=== PATIENT | female | born 1960 | race Caucasian/White ===

== ENCOUNTER 2017-07-27 16:05 | Outpatient (CLI) | payer OTHER ==
--- NOTE | 2017-07-30 16:04 | Mammography Report ---
DIGITAL SCREENING MAMMOGRAM: 07/27/2017 CLINICAL INDICATION: A 57-year-old, for screening. COMPARISON: 08/2015, 04/2014, 03/2013, 12/2011, 02/2010. TECHNIQUE: Routine CC and MLO projections were obtained of the breasts. FINDINGS: Scattered fibroglandular tissue is present within the breasts. There are no dominant masses, suspicious microcalcifications, or secondary signs of malignancy. In comparison to the previous studies, there are no significant changes. ASSESSMENT: NO MAMMOGRAPHIC EVIDENCE OF MALIGNANCY. NO SIGNIFICANT INTERVAL CHANGES. RECOMMENDATION: Screening mammography is recommended annually. BIRADS category 1 - negative. STANDARD QUALIFYING STATEMENTS: 1. This examination was reviewed with the aid of Computed-Aided Detection (CAD). 2. A negative or benign imaging report should not delay biopsy if clinically suspicious findings are present. Consider surgical consultation if warranted. More than 5% of cancers are not identified by imaging. 3. Dense breasts may obscure an underlying neoplasm. TD: 07/30/2017 16:03
== END 2017-07-27 16:06 | disposition home or self-care (01) ==
LOC: DI.N 16:05
PROVIDERS: ATTEND Physician Assistant Medical
DX: Z12.31 Encounter for screening mammogram for malignant neoplasm of breast (principal)
CPT/HCPCS: 77067

== ENCOUNTER 2017-10-23 11:13 | Outpatient (CLI) | payer OTHER ==
[2017-10-23 19:06] LABS: BILIRUBIN,URINE NEGATIVE (NEGATIVE); GLUCOSE, URINE (UA) NEGATIVE (NEGATIVE); KETONES,URINE (UA) NEGATIVE (NEGATIVE); LEUKOCYTE ESTERASE, URINE NEGATIVE (NEGATIVE); NITRITE,URINE NEGATIVE (NEGATIVE); OCCULT BLOOD,URINE MODERATE (NEGATIVE); PROTEIN,URINE NEGATIVE (NEGATIVE); UROBILINOGEN,URINE 0.2 (NORMAL) E.U./dL (NORMAL)
[2017-10-23 19:08] LABS: BASOPHILS # (AUTO) 0.1 10^3/uL (0.0-0.1); BASOPHILS % (AUTO) 0.7 %; EOSINOPHILS # (AUTO) 0.1 10^3/uL (0.0-0.7); EOSINOPHILS % (AUTO) 1.7 %; HGB - HEMOGLOBIN 14.2 g/dL (12.0-16.0); LYMPHOCYTES # (AUTO) 2.4 10^3/uL (1.5-3.5); LYMPHOCYTES % (AUTO) 31.4 %; MEAN CORPUSCULAR HEMOGLOBIN 31.3 pg (27.0-31.0); MEAN CORPUSCULAR VOLUME 97.8 fL (81.0-99.0); MEAN PLATELET VOLUME 7.5 fL (7.9-10.8); MONOCYTES # (AUTO) 0.6 10^3/uL (0.0-1.0); MONOCYTES % (AUTO) 7.6 %; NEUTROPHILS # (AUTO) 4.4 10^3/uL (1.5-6.6); NEUTROPHILS % (AUTO) 58.6 %; PLT - PLATELET COUNT 306 10^3/uL (130-450); RED BLOOD COUNT 4.54 10^6/uL (4.20-5.40); RED CELL DISTRIBUTION WIDTH 14.7 % (12.0-15.0); WHITE BLOOD COUNT 7.6 x10^3/uL (4.8-10.8)
[2017-10-23 19:27] LABS: CLARITY,URINE CLEAR (CLEAR)
[2017-10-23 19:28] LABS: BACTERIA,URINE Rare /HPF (None Seen); RBC,URINE 0-5 /HPF (0-5); SQUAMOUS EPITHELIAL CELL,UR FEW Squamous (<= Few)
[2017-10-23 19:46] LABS: ALKALINE PHOSPHATASE 82 IU/L (42-121); ALT ALANINE AMINOTRANSFERASE 16 IU/L (10-60); AST ASPARTATE AMINOTRANSFERASE 15 IU/L (10-42); BILIRUBIN,TOTAL 1.5 mg/dL (0.2-1.0); BUN - BLOOD UREA NITROGEN 14 mg/dL (6-20); CARBON DIOXIDE - CO2 28 mmol/L (21-32); CHLORIDE 103 mmol/L (101-111); CHOL/HDL RATIO 2.9 (<4.4); CHOLESTEROL 147 mg/dL; CREATININE 0.6 mg/dL (0.4-1.0); GFR - MDRD 102 (>89); GLUCOSE 79 mg/dL (70-100); HDL CHOLESTEROL 51 mg/dL; LDL CHOLESTEROL,CALCULATED 76 mg/dL; LDL/HDL RATIO 1.5 (<4.4); SODIUM 139 mmol/L (135-145); TOTAL PROTEIN 7.9 g/dL (6.7-8.2); VLDL CHOLESTEROL 20 mg/dL
== END 2017-10-23 11:14 ==
LOC: LAB.WCP 11:13
PROVIDERS: ATTEND Physician Assistant Medical
DX: E78.5 Hyperlipidemia, unspecified (principal); L40.50 Arthropathic psoriasis, unspecified; R31.9 Hematuria, unspecified
CPT/HCPCS: 36415; 80053; 80061; 81001; 83721; 85025; 87086

== ENCOUNTER 2018-01-09 08:00 | Outpatient (CLI) | payer OTHER ==
[2018-01-09 19:15] LABS: ALBUMIN 3.9 g/dL (3.2-5.5); ALBUMIN/GLOBULIN RATIO 1.1 (1.0-2.2); BILIRUBIN,TOTAL 0.5 mg/dL (0.2-1.0); CALCIUM 8.6 mg/dL (8.5-10.3); CREATININE 0.7 mg/dL (0.4-1.0); TOTAL PROTEIN 7.6 g/dL (6.7-8.2)
== END 2018-01-09 08:01 | disposition home or self-care (01) ==
LOC: LAB.R 08:00
PROVIDERS: ATTEND Physician Assistant Medical
DX: R74.8 Abnormal levels of other serum enzymes (principal)
CPT/HCPCS: 80053

== ENCOUNTER 2018-06-29 10:26 | Outpatient (CLI) | payer OTHER ==
[2018-06-29] MEDS ORDERED: IOVERSOL 320 100 ML VIAL IVP ONE ×3 (10:34→11:20)
--- NOTE | 2018-06-30 21:17 | CT Report ---
Reason: ASYMPTOMATIC MICROSCOPIC HEMATURIA Procedure Date: 06/29/2018 Accession Number: [id number] / [id number] Procedure: CT - IVP CPT Code: FULL RESULT: EXAM: CT ABDOMEN AND PELVIS WITHOUT AND WITH CONTRAST (CT IVP). EXAM DATE: 06/29/2018 11:26 AM. CLINICAL HISTORY: Asymptomatically microscopic hematuria. COMPARISONS: None. TECHNIQUE: Pre and postcontrast images of the abdomen and pelvis are acquired. Post contrast images were acquired using a split bolus technique. IV Contrast: 100 mL Optiray 320. Reconstructions: Coronal and sagittal. In accordance with CT protocol optimization, one or more of the following dose reduction techniques were utilized for this exam: automated exposure control, adjustment of mA and/or KV based on patient size, or use of iterative reconstructive technique. FINDINGS: Right Kidney/Ureter: There is no kidney stone or hydronephrosis. No definite suspicious renal mass. A few small low-density foci are noted within the right kidney, probably representing renal cysts. No suspicious collecting system filling defect is noted at this time. Left Kidney/Ureter: No stone or hydronephrosis. There are several small low-density foci within the kidney, suggestive of a cyst. Small exophytic low-density arises from the anterior portion of the right lower kidney as well. No definite collecting system filling defect is noted. Other Solid Organs: There is a large gallstone. No evidence of cholecystitis. Abdominal parenchymal organs are otherwise without significant abnormality. Peritoneal Cavity/Bowel: No bowel obstruction. Average amount of retained difficult material. The appendix could not be identified with certainty. However, there are no secondary signs of appendicitis demonstrated at this time. No free fluid or pathologic lymph adenopathy. Pelvic Organs: There is nonspecific asymmetric fullness in the region of the right labia (image 83 series 4). Physiologic appearance of the ovaries. No suspicious bladder filling defect. Vasculature: Normal caliber aorta. Bones: There is a mild left convex scoliosis of the lumbar spine. Mild multilevel lumbar degenerative change. No suspicious bone lesion. Lower chest: No significant consolidation or effusion. IMPRESSION: 1. No suspicious renal mass or urinary collecting system filling defect. No kidney stone or hydronephrosis. 2. Nonspecific asymmetric fullness in the region of the right labia compared to the left side. This may be artifact related to oblique positioning. Correlation with direct visualization and physical examination would be helpful to exclude a symptomatic Bartholin cyst or other mass. RADIA
== END 2018-06-29 10:27 | disposition home or self-care (01) ==
LOC: DI 10:26
PROVIDERS: ATTEND Urology
DX: R31.21 Asymptomatic microscopic hematuria (principal)
CPT/HCPCS: 74178; Q9967

== ENCOUNTER 2018-11-13 07:02 | Outpatient (CLI) | payer OTHER ==
[2018-11-13 12:25] LABS: BASOPHILS # (AUTO) 0.1 10^3/uL (0.0-0.1); BASOPHILS % (AUTO) 0.9 %; EOSINOPHILS # (AUTO) 0.1 10^3/uL (0.0-0.7); EOSINOPHILS % (AUTO) 1.5 %; LYMPHOCYTES # (AUTO) 2.4 10^3/uL (1.5-3.5); LYMPHOCYTES % (AUTO) 30.3 %; MEAN CORPUSCULAR HEMOGLOBIN 29.8 pg (27.0-31.0); MEAN CORPUSCULAR HGB CONC 31.1 g/dL (32.0-36.0); MEAN CORPUSCULAR VOLUME 95.7 fL (81.0-99.0); MEAN PLATELET VOLUME 9.2 fL (7.9-10.8); MONOCYTES # (AUTO) 0.7 10^3/uL (0.0-1.0); MONOCYTES % (AUTO) 8.9 %; NEUTROPHILS # (AUTO) 4.7 10^3/uL (1.5-6.6); PLT - PLATELET COUNT 348 10^3/uL (130-450); RED CELL DISTRIBUTION WIDTH 13.7 % (12.0-15.0)
[2018-11-13 12:54] LABS: ALBUMIN 3.8 g/dL (3.2-5.5); ALBUMIN/GLOBULIN RATIO 0.9 (1.0-2.2); ALKALINE PHOSPHATASE 107 IU/L (42-121); ALT ALANINE AMINOTRANSFERASE 38 IU/L (10-60); AST ASPARTATE AMINOTRANSFERASE 18 IU/L (10-42); BILIRUBIN,TOTAL 1.2 mg/dL (0.2-1.0); BUN - BLOOD UREA NITROGEN 16 mg/dL (6-20); CALCIUM 8.9 mg/dL (8.5-10.3); CARBON DIOXIDE - CO2 23 mmol/L (21-32); CHLORIDE 106 mmol/L (101-111); CREATININE 0.6 mg/dL (0.4-1.0); GFR - MDRD 102 (>89); GLUCOSE 94 mg/dL (70-100); SODIUM 139 mmol/L (135-145); TOTAL PROTEIN 7.9 g/dL (6.7-8.2)
[2018-11-13 12:58] LABS: CHOL/HDL RATIO 3.1 (<4.4); CHOLESTEROL 155 mg/dL; HDL CHOLESTEROL 50 mg/dL; LDL CHOLESTEROL,CALCULATED 78 mg/dL; LDL/HDL RATIO 1.6 (<4.4); VLDL CHOLESTEROL 27 mg/dL
[2018-11-13 13:11] LABS: CRP - C-REACTIVE PROTEIN < 1.0 mg/dL (0-1.0)
[2018-11-13 18:10] LABS: RHEUMATOID FACTOR NEGATIVE (Negative)
[2018-11-15 10:32] LABS: DNA (DS) ANTIBODY 1 IU/mL
[2018-11-15 16:51] LABS: COMPLEMENT COMPONENT C3C 158 mg/dL (83-193); COMPLEMENT COMPONENT C4C 40 mg/dL (15-57)
[2018-11-15 20:02] LABS: CYCLIC CITRULL PEPTIDE CCP IGG <16 UNITS
== END 2018-11-13 07:03 | disposition home or self-care (01) ==
LOC: LAB.WCP 07:02
PROVIDERS: ATTEND Physician Assistant Medical
DX: Z00.00 Encounter for general adult medical examination without abnormal findings (principal); L40.50 Arthropathic psoriasis, unspecified; M25.50 Pain in unspecified joint; R76.8 Other specified abnormal immunological findings in serum; E78.5 Hyperlipidemia, unspecified
CPT/HCPCS: 36415; 80053; 80061; 83721; 84443; 85025; 85651; 86140; 86160; 86200; 86225; 86430

== ENCOUNTER 2018-12-05 16:03 | Outpatient (CLI) | payer OTHER ==
--- NOTE | 2018-12-09 10:13 | Mammography Report ---
Reason: SCREENING MAMMO Procedure Date: 12/05/2018 Accession Number: [id number] / [id number] Procedure: [facility] - Screening Mammo Dig Bilat CPT Code: FULL RESULT: EXAM: Screening Mammo Dig Bilat DATE: 12/05/2018 4:26 PM CLINICAL HISTORY: Screening encounter. No reported risk factors. TECHNIQUE: (B) - Bilateral CC and MLO views were obtained. COMPARISON: 07/27/2017 through 04/18/2013. PARENCHYMAL PATTERN: (A) - The breast(s) demonstrate(s) scattered fibroglandular densities. FINDINGS: The left CC projection imaging needs to be repeated for technical reasons. There are no suspicious masses, calcifications, or areas of distortion. IMPRESSION: Incomplete examination. BI-RADS category 0. RECOMMENDATION: (REPEAT) - left CC projection, including left laterally exaggerated CC technique. BI-RADS CATEGORY: (0) - Incomplete Examination - need additional evaluation. STANDARD QUALIFYING STATEMENTS: 1. This examination was not reviewed with the aid of Computer-Aided Detection (CAD). 2. A negative or benign imaging report should not preclude biopsy if clinically suspicious findings are present. 3. Dense breasts may obscure an underlying neoplasm. 4. This examination was reviewed without the aid of 3D breast imaging (tomosynthesis).
== END 2018-12-05 16:04 | disposition home or self-care (01) ==
LOC: DI.N 16:03
DX: Z12.31 Encounter for screening mammogram for malignant neoplasm of breast (principal)
CPT/HCPCS: 77067

== ENCOUNTER 2018-12-27 12:09 | Outpatient (CLI) | payer OTHER ==
--- NOTE | 2018-12-30 08:18 | Mammography Report ---
Reason: ROUTINE MAMMO - TECH REPEAT Procedure Date: 12/27/2018 Accession Number: [id number] / [id number] Procedure: [facility] - Screening Mammo Dig Bilat CPT Code: FULL RESULT: EXAM: Screening Mammo Dig Bilat DATE: 12/27/2018 1:05 PM CLINICAL HISTORY: Screening encounter. No reported risk factors. TECHNIQUE: (B) - Bilateral CC and MLO views were obtained. Images obtained 12/27/2018 are interpreted in conjunction with images obtained 12/05/2018. COMPARISON: 07/27/2017 through 04/18/2013. PARENCHYMAL PATTERN: (A) - The breast(s) demonstrate(s) scattered fibroglandular densities. FINDINGS: There are no suspicious masses, calcifications, or areas of distortion. IMPRESSION: Negative examination. BI-RADS category 1. RECOMMENDATION: (ANNUAL) - Recommend routine annual screening mammography. BI-RADS CATEGORY: (1) - Negative. STANDARD QUALIFYING STATEMENTS: 1. This examination was not reviewed with the aid of Computer-Aided Detection (CAD). 2. A negative or benign imaging report should not preclude biopsy if clinically suspicious findings are present. 3. Dense breasts may obscure an underlying neoplasm. 4. This examination was reviewed without the aid of 3D breast imaging (tomosynthesis).
== END 2018-12-27 12:10 | disposition home or self-care (01) ==
LOC: DI 12:09
DX: Z12.31 Encounter for screening mammogram for malignant neoplasm of breast (principal)
CPT/HCPCS: 77067

== ENCOUNTER 2019-01-06 15:19 | Outpatient (CLI) | payer OTHER ==
[2019-01-06 18:42] LABS: BASOPHILS # (AUTO) 0.1 10^3/uL (0.0-0.1); BASOPHILS % (AUTO) 0.9 %; EOSINOPHILS # (AUTO) 0.1 10^3/uL (0.0-0.7); EOSINOPHILS % (AUTO) 0.6 %; HGB - HEMOGLOBIN 13.9 g/dL (12.0-16.0); LYMPHOCYTES # (AUTO) 2.6 10^3/uL (1.5-3.5); LYMPHOCYTES % (AUTO) 26.5 %; MEAN CORPUSCULAR HEMOGLOBIN 30.7 pg (27.0-31.0); MEAN CORPUSCULAR HGB CONC 31.7 g/dL (32.0-36.0); MEAN CORPUSCULAR VOLUME 96.7 fL (81.0-99.0); MEAN PLATELET VOLUME 9.5 fL (7.9-10.8); MONOCYTES # (AUTO) 0.7 10^3/uL (0.0-1.0); NEUTROPHILS # (AUTO) 6.2 10^3/uL (1.5-6.6); NEUTROPHILS % (AUTO) 64.8 %; PLT - PLATELET COUNT 335 10^3/uL (130-450); RED BLOOD COUNT 4.53 10^6/uL (4.20-5.40); RED CELL DISTRIBUTION WIDTH 14.3 % (12.0-15.0); WHITE BLOOD COUNT 9.6 x10^3/uL (4.8-10.8)
[2019-01-06 19:01] LABS: BILIRUBIN,TOTAL 0.5 mg/dL (0.2-1.0); CALCIUM 9.1 mg/dL (8.5-10.3); CREATININE 0.6 mg/dL (0.4-1.0); TOTAL PROTEIN 8.1 g/dL (6.7-8.2)
== END 2019-01-06 23:59 | disposition home or self-care (01) ==
LOC: LAB.WCP 15:19
PROVIDERS: ATTEND Internal Medicine Rheumatology
DX: L40.50 Arthropathic psoriasis, unspecified (principal); R76.8 Other specified abnormal immunological findings in serum
CPT/HCPCS: 36415; 80053; 85025; 85651

== ENCOUNTER 2020-03-08 08:00 | Outpatient (CLI) | payer OTHER ==
[2020-03-08 18:02] LABS: BASOPHILS # (AUTO) 0.1 10^3/uL (0.0-0.1); BASOPHILS % (AUTO) 0.9 %; EOSINOPHILS # (AUTO) 0.1 10^3/uL (0.0-0.7); HGB - HEMOGLOBIN 13.1 g/dL (12.0-16.0); LYMPHOCYTES # (AUTO) 2.8 10^3/uL (1.5-3.5); LYMPHOCYTES % (AUTO) 32.1 %; MEAN CORPUSCULAR HEMOGLOBIN 33.9 pg (27.0-31.0); MEAN CORPUSCULAR HGB CONC 34.6 g/dL (32.0-36.0); MEAN CORPUSCULAR VOLUME 98.2 fL (81.0-99.0); MEAN PLATELET VOLUME 9.3 fL (7.9-10.8); MONOCYTES # (AUTO) 0.7 10^3/uL (0.0-1.0); MONOCYTES % (AUTO) 8.6 %; NEUTROPHILS # (AUTO) 4.9 10^3/uL (1.5-6.6); NEUTROPHILS % (AUTO) 57.1 %; PLT - PLATELET COUNT 350 10^3/uL (130-450); RED BLOOD COUNT 3.86 10^6/uL (4.20-5.40); RED CELL DISTRIBUTION WIDTH 14.7 % (12.0-15.0); WHITE BLOOD COUNT 8.6 x10^3/uL (4.8-10.8)
[2020-03-08 18:14] LABS: ALBUMIN 3.8 g/dL (3.2-5.5); BILIRUBIN,TOTAL 0.8 mg/dL (0.2-1.0); CALCIUM 9.1 mg/dL (8.5-10.3); CREATININE 0.8 mg/dL (0.4-1.0); TOTAL PROTEIN 7.5 g/dL (6.7-8.2)
== END 2020-03-08 23:59 | disposition home or self-care (01) ==
LOC: LAB.R 08:00
PROVIDERS: ATTEND Physician Assistant Medical
DX: L40.50 Arthropathic psoriasis, unspecified (principal)
CPT/HCPCS: 80053; 85025; 85651

== ENCOUNTER 2020-06-16 08:00 | Outpatient (CLI) | payer MEDICAID, OTHER ==
[2020-06-16 12:50] LABS: BASOPHILS # (AUTO) 0.1 10^3/uL (0.0-0.1); BASOPHILS % (AUTO) 0.6 %; EOSINOPHILS # (AUTO) 0.1 10^3/uL (0.0-0.7); EOSINOPHILS % (AUTO) 0.9 %; HGB - HEMOGLOBIN 13.6 g/dL (12.0-16.0); LYMPHOCYTES # (AUTO) 2.5 10^3/uL (1.5-3.5); LYMPHOCYTES % (AUTO) 28.5 %; MEAN CORPUSCULAR HGB CONC 34.4 g/dL (32.0-36.0); MEAN CORPUSCULAR VOLUME 98.8 fL (81.0-99.0); MEAN PLATELET VOLUME 9.2 fL (7.9-10.8); MONOCYTES # (AUTO) 0.5 10^3/uL (0.0-1.0); MONOCYTES % (AUTO) 5.5 %; NEUTROPHILS # (AUTO) 5.6 10^3/uL (1.5-6.6); NEUTROPHILS % (AUTO) 64.2 %; PLT - PLATELET COUNT 357 10^3/uL (130-450); RED CELL DISTRIBUTION WIDTH 12.5 % (12.0-15.0); WHITE BLOOD COUNT 8.8 x10^3/uL (4.8-10.8)
[2020-06-16 13:20] LABS: ALBUMIN 3.9 g/dL (3.2-5.5); ALBUMIN/GLOBULIN RATIO 0.9 (1.0-2.2); ALKALINE PHOSPHATASE 62 IU/L (42-121); ALT ALANINE AMINOTRANSFERASE 22 IU/L (10-60); AST ASPARTATE AMINOTRANSFERASE 18 IU/L (10-42); BILIRUBIN,TOTAL 0.7 mg/dL (0.2-1.0); BUN - BLOOD UREA NITROGEN 22 mg/dL (6-20); CALCIUM 10.1 mg/dL (8.5-10.3); CARBON DIOXIDE - CO2 29 mmol/L (21-32); CHLORIDE 98 mmol/L (101-111); CHOL/HDL RATIO 2.9 (<4.4); CHOLESTEROL 152 mg/dL; CREATININE 0.9 mg/dL (0.4-1.0); GLUCOSE 90 mg/dL (70-100); HDL CHOLESTEROL 52 mg/dL; LDL CHOLESTEROL,CALCULATED 72 mg/dL; LDL/HDL RATIO 1.4 (<4.4); TOTAL PROTEIN 8.2 g/dL (6.7-8.2); VLDL CHOLESTEROL 28 mg/dL
== END 2020-06-16 23:59 | disposition home or self-care (01) ==
LOC: LAB.WCP 08:00
PROVIDERS: ATTEND Physician Assistant Medical
DX: Z00.00 Encounter for general adult medical examination without abnormal findings (principal); E78.5 Hyperlipidemia, unspecified; L40.50 Arthropathic psoriasis, unspecified
CPT/HCPCS: 36415; 80053; 80061; 83721; 84443; 85025; 85651

== ENCOUNTER 2020-07-19 08:00 | Outpatient (CLI) | payer MEDICAID ==
[2020-07-19 18:43] LABS: CALCIUM 9.6 mg/dL (8.5-10.3)
== END 2020-07-19 23:59 | disposition home or self-care (01) ==
LOC: LAB.WCP 08:00
PROVIDERS: ATTEND Physician Assistant Medical
DX: I10 Essential (primary) hypertension (principal)
CPT/HCPCS: 36415; 80048

== ENCOUNTER 2020-10-05 09:01 | Outpatient (CLI) | payer MEDICAID ==
[2020-10-05 13:03] LABS: BASOPHILS # (AUTO) 0.1 10^3/uL (0.0-0.1); BASOPHILS % (AUTO) 1.6 %; EOSINOPHILS # (AUTO) 0.1 10^3/uL (0.0-0.7); EOSINOPHILS % (AUTO) 1.6 %; HCT - HEMATOCRIT 41.7 % (37.0-47.0); HGB - HEMOGLOBIN 14.6 g/dL (12.0-16.0); LYMPHOCYTES # (AUTO) 1.7 10^3/uL (1.5-3.5); MEAN CORPUSCULAR HEMOGLOBIN 33.5 pg (27.0-31.0); MEAN CORPUSCULAR VOLUME 95.6 fL (81.0-99.0); MEAN PLATELET VOLUME 9.6 fL (7.9-10.8); MONOCYTES # (AUTO) 0.5 10^3/uL (0.0-1.0); NEUTROPHILS # (AUTO) 4.6 10^3/uL (1.5-6.6); NEUTROPHILS % (AUTO) 65.5 %; PLT - PLATELET COUNT 345 10^3/uL (130-450); RED BLOOD COUNT 4.36 10^6/uL (4.20-5.40); RED CELL DISTRIBUTION WIDTH 12.9 % (12.0-15.0)
[2020-10-05 13:33] LABS: ALBUMIN 4.2 g/dL (3.2-5.5); ALKALINE PHOSPHATASE 73 IU/L (42-121); ALT ALANINE AMINOTRANSFERASE 20 IU/L (10-60); AST ASPARTATE AMINOTRANSFERASE 19 IU/L (10-42); BILIRUBIN,TOTAL 1.1 mg/dL (0.2-1.0); BUN - BLOOD UREA NITROGEN 32 mg/dL (6-20); CALCIUM 9.6 mg/dL (8.5-10.3); CARBON DIOXIDE - CO2 26 mmol/L (21-32); CHLORIDE 103 mmol/L (101-111); CHOL/HDL RATIO 3.6 (<4.4); CHOLESTEROL 175 mg/dL; CREATININE 1.2 mg/dL (0.4-1.0); GFR - MDRD 46 (>89); GLUCOSE 92 mg/dL (70-100); HDL CHOLESTEROL 48 mg/dL; LDL CHOLESTEROL,CALCULATED 108 mg/dL; LDL/HDL RATIO 2.3 (<4.4); POTASSIUM 2.9 mmol/L (3.5-5.0); SODIUM 140 mmol/L (135-145); THYROID STIMULATING HORMONE 0.35 uIU/mL (0.34-5.60); TOTAL PROTEIN 8.3 g/dL (6.7-8.2); TRIGLYCERIDES 94 mg/dL; VLDL CHOLESTEROL 19 mg/dL
== END 2020-10-05 23:59 | disposition home or self-care (01) ==
LOC: LAB.WCP 09:01
PROVIDERS: ATTEND Physician Assistant Medical
DX: E55.9 Vitamin D deficiency, unspecified (principal); R74.8 Abnormal levels of other serum enzymes; E78.5 Hyperlipidemia, unspecified; I10 Essential (primary) hypertension
CPT/HCPCS: 36415; 80053; 80061; 83721; 84443; 85025

== ENCOUNTER 2020-10-26 08:00 | Outpatient (CLI) | payer MEDICAID ==
[2020-10-26 18:15] LABS: BASOPHILS # (AUTO) 0.1 10^3/uL (0.0-0.1); BASOPHILS % (AUTO) 0.8 %; EOSINOPHILS # (AUTO) 0.1 10^3/uL (0.0-0.7); EOSINOPHILS % (AUTO) 1.2 %; HCT - HEMATOCRIT 41.1 % (37.0-47.0); HGB - HEMOGLOBIN 13.8 g/dL (12.0-16.0); LYMPHOCYTES # (AUTO) 1.8 10^3/uL (1.5-3.5); MEAN CORPUSCULAR HEMOGLOBIN 33.7 pg (27.0-31.0); MEAN CORPUSCULAR HGB CONC 33.6 g/dL (32.0-36.0); MEAN CORPUSCULAR VOLUME 100.2 fL (81.0-99.0); MEAN PLATELET VOLUME 10.2 fL (7.9-10.8); MONOCYTES # (AUTO) 0.6 10^3/uL (0.0-1.0); NEUTROPHILS # (AUTO) 7.5 10^3/uL (1.5-6.6); NEUTROPHILS % (AUTO) 73.7 %; PLT - PLATELET COUNT 332 10^3/uL (130-450); RED CELL DISTRIBUTION WIDTH 14.5 % (12.0-15.0); WHITE BLOOD COUNT 10.2 x10^3/uL (4.8-10.8)
[2020-10-26 18:34] LABS: ALBUMIN 4.1 g/dL (3.2-5.5); ALBUMIN/GLOBULIN RATIO 1.1 (1.0-2.2); BILIRUBIN,TOTAL 1.3 mg/dL (0.2-1.0); CALCIUM 9.1 mg/dL (8.5-10.3); CREATININE 0.8 mg/dL (0.4-1.0); POTASSIUM 3.5 mmol/L (3.5-5.0); TOTAL PROTEIN 7.7 g/dL (6.7-8.2)
== END 2020-10-26 23:59 | disposition home or self-care (01) ==
LOC: LAB.N 08:00
PROVIDERS: ATTEND Family Medicine
DX: I10 Essential (primary) hypertension (principal)
CPT/HCPCS: 36415; 80053; 85025

== ENCOUNTER 2021-06-09 15:21 | Outpatient (CLI) | payer MEDICAID ==
--- NOTE | 2021-06-13 08:58 | Mammography Report ---
BILATERAL DIGITAL SCREENING MAMMOGRAM 3D/2D: 06/09/2021 CLINICAL: Routine screening. Comparison is made to exams dated: 12/27/2018 mammogram, 12/05/2018 mammogram, 07/27/2017 mammogram, 2015 mammogram, 05/22/2014 mammogram, and 04/18/2013 mammogram - [facility]. There are scattered fibroglandular elements in both breasts. No significant masses, calcifications, or other findings are seen in either breast. There has been no significant interval change. IMPRESSION: NEGATIVE There is no mammographic evidence of malignancy. A 1 year screening mammogram is recommended. This exam was interpreted at Station ID: [id number]. NOTE: For mammograms, a report in lay terms will be sent to the patient. Approximately 15% of breast malignancies will not be visualized mammographically. In the management of a palpable breast mass, a negative mammogram must not discourage biopsy of a clinically suspicious lesion. Electronically Signed By: García brito/tone:06/10/2021 08:11:53 ACR BI-RADS Category 1: Negative 3341F PARENCHYMAL PATTERN: (A) - The breast(s) demonstrate(s) scattered fibroglandular densities. BI-RADS CATEGORY: (1) - 1 RECOMMENDATION: (ANNUAL) - Recommend routine annual screening mammography. [id number] 1 year screening LATERALITY: (B)
== END 2021-06-09 15:22 | disposition home or self-care (01) ==
LOC: DI.N 15:21
DX: Z12.31 Encounter for screening mammogram for malignant neoplasm of breast (principal)

== ENCOUNTER 2021-09-10 09:06 | Outpatient (CLI) | payer MEDICAID ==
[2021-09-10 14:13] LABS: BASOPHILS # (AUTO) 0.1 10^3/uL (0.0-0.1); BASOPHILS % (AUTO) 0.9 %; EOSINOPHILS # (AUTO) 0.1 10^3/uL (0.0-0.7); EOSINOPHILS % (AUTO) 1.5 %; HCT - HEMATOCRIT 39.8 % (37.0-47.0); HGB - HEMOGLOBIN 14.1 g/dL (12.0-16.0); LYMPHOCYTES # (AUTO) 1.7 10^3/uL (1.5-3.5); LYMPHOCYTES % (AUTO) 25.1 %; MEAN CORPUSCULAR HEMOGLOBIN 35.3 pg (27.0-31.0); MEAN CORPUSCULAR HGB CONC 35.4 g/dL (32.0-36.0); MEAN CORPUSCULAR VOLUME 99.7 fL (81.0-99.0); MEAN PLATELET VOLUME 9.5 fL (7.9-10.8); MONOCYTES # (AUTO) 0.6 10^3/uL (0.0-1.0); MONOCYTES % (AUTO) 9.7 %; NEUTROPHILS # (AUTO) 4.2 10^3/uL (1.5-6.6); NEUTROPHILS % (AUTO) 62.6 %; PLT - PLATELET COUNT 343 10^3/uL (130-450); RED BLOOD COUNT 3.99 10^6/uL (4.20-5.40); WHITE BLOOD COUNT 6.6 x10^3/uL (4.8-10.8)
[2021-09-10 14:37] LABS: ALBUMIN 4.3 g/dL (3.2-5.5); ALBUMIN/GLOBULIN RATIO 1.1 (1.0-2.2); ALKALINE PHOSPHATASE 118 IU/L (42-121); ALT ALANINE AMINOTRANSFERASE 18 IU/L (10-60); AST ASPARTATE AMINOTRANSFERASE 18 IU/L (10-42); BUN - BLOOD UREA NITROGEN 14 mg/dL (6-20); CALCIUM 9.1 mg/dL (8.5-10.3); CARBON DIOXIDE - CO2 28 mmol/L (21-32); CHLORIDE 102 mmol/L (101-111); CHOL/HDL RATIO 2.9 (<4.4); CHOLESTEROL 149 mg/dL; CREATININE 0.7 mg/dL (0.4-1.0); GFR - MDRD 85 (>89); GLUCOSE 95 mg/dL (70-100); HDL CHOLESTEROL 52 mg/dL; LDL CHOLESTEROL,CALCULATED 85 mg/dL; LDL/HDL RATIO 1.6 (<4.4); POTASSIUM 3.7 mmol/L (3.5-5.0); SODIUM 139 mmol/L (135-145); TOTAL PROTEIN 8.3 g/dL (6.7-8.2); TRIGLYCERIDES 61 mg/dL; VLDL CHOLESTEROL 12 mg/dL
[2021-09-10 14:46] LABS: THYROID STIMULATING HORMONE 0.62 uIU/mL (0.34-5.60)
== END 2021-09-10 09:07 | disposition home or self-care (01) ==
LOC: LAB.N 09:06
PROVIDERS: ATTEND Physician Assistant Medical
DX: Z00.00 Encounter for general adult medical examination without abnormal findings (principal)
CPT/HCPCS: 36415; 80053; 80061; 83721; 84443; 85025

== ENCOUNTER 2022-11-11 09:58 | Outpatient (CLI) | payer MEDICAID ==
[2022-11-11 18:59] LABS: BASOPHILS # (AUTO) 0.1 10^3/uL (0.0-0.1); BASOPHILS % (AUTO) 0.8 %; EOSINOPHILS # (AUTO) 0.1 10^3/uL (0.0-0.7); EOSINOPHILS % (AUTO) 1.8 %; HCT - HEMATOCRIT 40.6 % (37.0-47.0); HGB - HEMOGLOBIN 14.2 g/dL (12.0-16.0); LYMPHOCYTES # (AUTO) 1.4 10^3/uL (1.5-3.5); LYMPHOCYTES % (AUTO) 18.8 %; MEAN CORPUSCULAR HEMOGLOBIN 35.1 pg (27.0-31.0); MEAN CORPUSCULAR VOLUME 100.5 fL (81.0-99.0); MEAN PLATELET VOLUME 9.4 fL (7.9-10.8); MONOCYTES # (AUTO) 0.7 10^3/uL (0.0-1.0); MONOCYTES % (AUTO) 9.2 %; NEUTROPHILS % (AUTO) 69.3 %; PLT - PLATELET COUNT 336 10^3/uL (130-450); RED BLOOD COUNT 4.04 10^6/uL (4.20-5.40); RED CELL DISTRIBUTION WIDTH 14.1 % (12.0-15.0); WHITE BLOOD COUNT 7.2 x10^3/uL (4.8-10.8)
[2022-11-11 19:18] LABS: ALBUMIN 4.2 g/dL (3.2-5.5); ALKALINE PHOSPHATASE 151 IU/L (42-121); ALT ALANINE AMINOTRANSFERASE 39 IU/L (10-60); AST ASPARTATE AMINOTRANSFERASE 22 IU/L (10-42); BUN - BLOOD UREA NITROGEN 18 mg/dL (6-20); CALCIUM 8.9 mg/dL (8.5-10.3); CARBON DIOXIDE - CO2 27 mmol/L (21-32); CHLORIDE 108 mmol/L (101-111); CHOL/HDL RATIO 3.2 (<4.4); CHOLESTEROL 176 mg/dL; CREATININE 0.7 mg/dL (0.4-1.0); GFR - MDRD 84 (>89); GLUCOSE 97 mg/dL (70-100); HDL CHOLESTEROL 55 mg/dL; LDL CHOLESTEROL,CALCULATED 103 mg/dL; LDL/HDL RATIO 1.9 (<4.4); POTASSIUM 3.5 mmol/L (3.5-5.0); SODIUM 140 mmol/L (135-145); TOTAL PROTEIN 8.4 g/dL (6.7-8.2); TRIGLYCERIDES 90 mg/dL; VLDL CHOLESTEROL 18 mg/dL
[2022-11-12 14:36] LABS: ESTIMATED AVERAGE GLUCOSE 103 mg/dL (70-100); HEMOGLOBIN A1c% 5.2 % (4.27-6.07)
== END 2022-11-11 09:59 | disposition home or self-care (01) ==
LOC: LAB.N 09:58
PROVIDERS: ATTEND Physician Assistant Medical
DX: E87.6 Hypokalemia (principal); R73.01 Impaired fasting glucose; E78.5 Hyperlipidemia, unspecified; N18.9 Chronic kidney disease, unspecified
CPT/HCPCS: 36415; 80053; 80061; 83036; 83721; 85025

== ENCOUNTER 2023-01-26 14:48 | Outpatient (CLI) | payer MEDICAID ==
--- NOTE | 2023-01-26 16:29 | Mammography Report ---
BILATERAL DIGITAL SCREENING MAMMOGRAM 3D/2D: 01/26/2023 CLINICAL: Routine screening. Comparison is made to exams dated: 06/09/2021 mammogram, 12/27/2018 mammogram, 12/05/2018 mammogram, 07/27 mammogram, and 09/01/2015 mammogram - [facility]. There are scattered areas of fibroglandular density in both breasts (category b / 25%-50% glandular t issue). No significant masses, calcifications, or other findings are seen in either breast. There has been no significant interval change. IMPRESSION: NEGATIVE There is no mammographic evidence of malignancy. A 1 year screening mammogram is recommended. Based on the Tyrer Cuzick model (a risk assessment model) the patients lifetime risk is 6.3% and her 10 year risk is 2.9%. According to the ACR, ACS, and NCCN guidelines, an annual breast MRI exam remedios g with mammogram is recommended if the patients lifetime risk is 20% or greater. This exam was interpreted at Station ID: [id number]. NOTE: For mammograms, a report in lay terms will be sent to the patient. Approximately 15% of breast malignancies will not be visualized mammographically. In the management of a palpable breast mass, a negative mammogram must not discourage biopsy of a clinically suspicious lesion. Electronically Signed By: García brito/tone:01/26/2023 16:08:44 ACR BI-RADS Category 1: Negative 3341F PARENCHYMAL PATTERN: (A) - The breast(s) demonstrate(s) scattered fibroglandular densities. BI-RADS CATEGORY: (1) - 1 Mammogram [id number] 1 year screening LATERALITY: (B)
== END 2023-01-26 14:49 | disposition home or self-care (01) ==
LOC: DI 14:48
DX: Z12.31 Encounter for screening mammogram for malignant neoplasm of breast (principal)

== ENCOUNTER 2023-09-22 09:11 | Outpatient (CLI) | payer MEDICARE, OTHER ==
[2023-09-22 19:10] LABS: ALBUMIN/GLOBULIN RATIO 0.9 (1.0-2.2); ALKALINE PHOSPHATASE 123 IU/L (42-121); ALT ALANINE AMINOTRANSFERASE 10 IU/L (10-60); AST ASPARTATE AMINOTRANSFERASE 10 IU/L (10-42); BILIRUBIN,TOTAL 0.6 mg/dL (0.2-1.0); BUN - BLOOD UREA NITROGEN 17 mg/dL (6-20); CALCIUM 9.7 mg/dL (8.5-10.3); CARBON DIOXIDE - CO2 27 mmol/L (21-32); CHLORIDE 107 mmol/L (101-111); CHOL/HDL RATIO 3.3 (<4.4); CHOLESTEROL 153 mg/dL; CREATININE 0.7 mg/dL (0.6-1.3); GFR - MDRD 84 (>89); GLUCOSE 85 mg/dL (74-104); HDL CHOLESTEROL 46 mg/dL; LDL CHOLESTEROL,CALCULATED 88 mg/dL; LDL/HDL RATIO 1.9 (<4.4); POTASSIUM 3.6 mmol/L (3.5-4.5); SODIUM 140 mmol/L (135-145); TOTAL PROTEIN 8.4 g/dL (6.4-8.9); TRIGLYCERIDES 93 mg/dL (48-352); VLDL CHOLESTEROL 19 mg/dL
[2023-09-23 08:03] LABS: ESTIMATED AVERAGE GLUCOSE 97 mg/dL (70-100)
== END 2023-09-22 09:12 | disposition home or self-care (01) ==
LOC: LAB.N 09:11
PROVIDERS: ATTEND Physician Assistant Medical
DX: E78.5 Hyperlipidemia, unspecified (principal); R73.01 Impaired fasting glucose
CPT/HCPCS: 36415; 80053; 80061; 83036; 83721

== ENCOUNTER 2024-02-16 09:44 | Outpatient (CLI) | payer MEDICARE, MEDICAID | END 2024-02-16 09:45 | disposition home or self-care (01) | LOC: LAB 09:44 | PROVIDERS: ATTEND Physician Assistant Medical | DX: Z53.9 Procedure and treatment not carried out, unspecified reason (principal) ==

== ENCOUNTER 2024-02-21 08:11 | Outpatient (CLI) | payer MEDICARE, MEDICAID ==
[2024-02-21 11:35] LABS: BASOPHILS # (AUTO) 0.1 10^3/uL (0.0-0.1); BASOPHILS % (AUTO) 1.4 %; EOSINOPHILS # (AUTO) 0.1 10^3/uL (0.0-0.7); EOSINOPHILS % (AUTO) 1.4 %; HCT - HEMATOCRIT 41.9 % (37.0-47.0); HGB - HEMOGLOBIN 14.5 g/dL (12.0-16.0); LYMPHOCYTES # (AUTO) 2.4 10^3/uL (1.5-3.5); LYMPHOCYTES % (AUTO) 29.8 %; MEAN CORPUSCULAR HGB CONC 34.6 g/dL (32.0-36.0); MEAN CORPUSCULAR VOLUME 95.2 fL (81.0-99.0); MEAN PLATELET VOLUME 9.3 fL (7.9-10.8); MONOCYTES # (AUTO) 0.6 10^3/uL (0.0-1.0); MONOCYTES % (AUTO) 7.3 %; NEUTROPHILS # (AUTO) 4.8 10^3/uL (1.5-6.6); PLT - PLATELET COUNT 369 10^3/uL (130-450); RED CELL DISTRIBUTION WIDTH 13.5 % (12.0-15.0)
[2024-02-21 11:52] LABS: ALBUMIN 3.9 g/dL (3.2-5.5); ALBUMIN/GLOBULIN RATIO 0.9 (1.0-2.2); ALKALINE PHOSPHATASE 106 IU/L (42-121); ALT ALANINE AMINOTRANSFERASE 10 IU/L (10-60); AST ASPARTATE AMINOTRANSFERASE 11 IU/L (10-42); BILIRUBIN,TOTAL 0.7 mg/dL (0.2-1.0); BUN - BLOOD UREA NITROGEN 11 mg/dL (6-20); CALCIUM 9.4 mg/dL (8.5-10.3); CARBON DIOXIDE - CO2 28 mmol/L (21-32); CHLORIDE 106 mmol/L (101-111); CHOL/HDL RATIO 3.2 (<4.4); CHOLESTEROL 141 mg/dL; CREATININE 0.7 mg/dL (0.6-1.3); GFR - MDRD 84 (>89); GLUCOSE 94 mg/dL (74-104); HDL CHOLESTEROL 44 mg/dL; LDL CHOLESTEROL,CALCULATED 78 mg/dL; LDL/HDL RATIO 1.8 (<4.4); POTASSIUM 3.7 mmol/L (3.5-4.5); SODIUM 138 mmol/L (135-145); TOTAL PROTEIN 8.1 g/dL (6.4-8.9); TRIGLYCERIDES 93 mg/dL; VLDL CHOLESTEROL 19 mg/dL
[2024-02-21 20:16] LABS: ESTIMATED AVERAGE GLUCOSE 97 mg/dL (70-100)
== END 2024-02-21 08:12 | disposition home or self-care (01) ==
LOC: LAB.N 08:11
PROVIDERS: ATTEND Physician Assistant Medical
DX: I10 Essential (primary) hypertension (principal); E78.5 Hyperlipidemia, unspecified; R73.01 Impaired fasting glucose
CPT/HCPCS: 36415; 80053; 80061; 83036; 83721; 85025